=== PATIENT | female | born 1955 | race Caucasian/White ===

== ENCOUNTER 2021-03-23 08:21 | Outpatient (CLI) | payer OTHER | END 2021-03-23 08:46 | disposition home or self-care (01) | LOC: MAMO-SONO 08:21 | PROVIDERS: ATTEND Obstetrics & Gynecology | DX: Z12.31 Encounter for screening mammogram for malignant neoplasm of breast (principal); Z87.898 Personal history of other specified conditions; N60.11 Diffuse cystic mastopathy of right breast ==

== ENCOUNTER 2021-05-21 12:30 | Inpatient (IN) | payer OTHER ==
[~2021-05-21] VITALS: Ht 160 cm; Wt 61.2 kg
[2021-05-21] MEDS ORDERED: VYTORIN 10-201 EACH PO (14:43)
[2021-05-21] MEDS ORDERED: DIOVAN40 MG PO (14:43)
== END 2021-06-01 10:16 | disposition home or self-care (01) | DRG 743 ==
LOC: OB/GYN 05-27 08:43 → O/R 05-27 08:43 → SURH 05-27 10:30 → OB/GYN 05-27 16:23
PROVIDERS: Urology; ADMIT Obstetrics & Gynecology; ATTEND Obstetrics & Gynecology
PROC: 0TSD0ZZ Reposition Urethra, Open Approach (ICD-10-PCS; 2021-05-27)
PROC: 0TJB8ZZ Inspection of Bladder, Via Natural or Artificial Opening Endoscopic (ICD-10-PCS; 2021-05-27)
PROC: 0UT97ZZ Resection of Uterus, Via Natural or Artificial Opening (ICD-10-PCS; principal; 2021-05-27 10:30)
PROC: 0UQF7ZZ Repair Cul-de-sac, Via Natural or Artificial Opening (ICD-10-PCS; 2021-05-27 10:30)
DX: N81.4 Uterovaginal prolapse, unspecified (principal); N81.89 Other female genital prolapse; N39.3 Stress incontinence (female) (male); N72 Inflammatory disease of cervix uteri; D25.1 Intramural leiomyoma of uterus; I10 Essential (primary) hypertension; E78.5 Hyperlipidemia, unspecified